=== PATIENT | female | born 1985 | race Caucasian/White ===

== ENCOUNTER → 2019-07-30 | Outpatient (CLI) | payer OTHER ==
[~2019-07-30] MED LIST: IBU600 MG PO; PERCOCET 325 MG1 TA2 PO; PRENATAL TABLET PO
== END ==
LOC: DIA.ED 09:30
DX: O24.419 Gestational diabetes mellitus in pregnancy, unspecified control (principal)
CPT/HCPCS: G0108

== ENCOUNTER → 2019-08-20 | Outpatient (CLI) | payer SELFPAY | LOC: DIA.ED 08-13 10:39 | DX: O24.419 Gestational diabetes mellitus in pregnancy, unspecified control (principal) | CPT/HCPCS: G0108 ==